=== PATIENT | female | born 1970 | race Caucasian/White ===

== ENCOUNTER 2019-05-11 08:59 | Day surgery (SDC) | payer OTHER ==
[~2019-05-11] VITALS: Ht 167.6 cm; Wt 78.4 kg
[2019-05-11 10:14] VITALS: Ht 167.6 cm; Wt 78.4 kg
[2019-05-11 10:21] VITALS: BP 108/65; PULSE 66; RESP 16
[2019-05-11] MEDS ORDERED: ELVI1TAB2 PO (10:23)
[2019-05-11] MEDS ORDERED: PROG50VI IM (10:23)
[2019-05-11] MEDS ORDERED: SPIR100T4 PO (10:23)
--- NOTE | 2019-05-11 10:58 | PREAC ---
Date/Time of Note Date/Time of Note DATE: 05/11/19 TIME: 10:56 Anesthesia Eval and Record Evaluation Time Pre-Procedure Interview DATE: 05/11/19 TIME: 10:56 Age 49 Sex female NPO: 8 hrs Preoperative diagnosis Screening Planned procedure Colonoscopy Past Medical History Past Medical History: Includes Infection(s): HIV : Other Surgery & Anesthesia Issues No known issue Meds Anticoagulation: No Beta Yenni within 24 hr: No Reason Beta Yenni not given: Pt. not on B-Yenni Reported Medications Spironolactone* (Spironolactone*) 100 Mg Tablet, 50 MG PO DAILY, TAB 05/11/19 Progesterone* (Progesterone*) 50 Mg/1 Ml Vial, 50 MG IM, VIAL 05/11/19 Elvitegr/Cobicist/Emtric/Tenof (STRIBILD TABLET) 1 Each Tablet, 1 EACH PO, TAB 05/11/19 Meds reviewed: Yes Allergies Coded Allergies: No Known Drug Allergies (Verified Allergy, Unknown, 05/11/19) Allergies Reviewed: Yes Labs/Studies Labs Reviewed: Reviewed by anesthesiologist test: N/A Studies: ECG (n/a), CXR (n/a) Pre-procedure Exam Last vitals Vital Signs Date Temp Pulse Resp B/P (MAP) Pulse Ox O2 O2 Flow FiO2 Time Delivery Rate 05/11/19 97.7 66 16 108/65 98 Room Air 10:21 (79) Airway: Adequate mouth opening, Adequate thyromental dist Mallampati: Mallampati II Teeth: Normal Lung: Normal Heart: Normal ASA Physical Status ASA physical status: 2 Emergency: None Planned Anesthetic General/MAC: MAC Planned Pain Management Parenteral pain med Pre-operative Attestations Prior to commencing anesthesia and surgery, the patient was re-evaluated, there was verification of: *The patient's identity *The results of appropriate recent lab work and preoperative vital signs *The above evaluation not changing prior to induction *Anesthetic plan, risk benefits, alternative and complications discussed with patient/family; questions answered; patient/family understands, accepts and wishes to proceed. CARLOS VILLALOBOS MD May 11, 2019 10:58
--- NOTE | 2019-05-11 11:28 | PAC ---
Date/Time of Note Date/Time of Note DATE: 05/11/19 TIME: 11:28 Post-Anesthesia Notes Post-Anesthesia Note Last documented vital signs Vital Signs Date Temp Pulse Resp B/P (MAP) Pulse Ox O2 O2 Flow FiO2 Time Delivery Rate 05/11/19 97.7 66 16 108/65 98 Room Air 11:31 (79) Activity: WNL Respiratory function: WNL Cardiovascular function: WNL Mental status: Baseline Pain reasonably controlled: Yes Hydration appropriate: Yes Nausea/Vomiting absent: Yes CARLOS VILLALOBOS MD May 11, 2019 11:28
[2019-05-11 12:06] VITALS: BP 113/63; PULSE 64; RESP 18
== END 2019-05-11 16:00 | disposition home or self-care (01) ==
LOC: GIL 08:59
PROVIDERS: ATTEND Internal Medicine Gastroenterology
DX: Z12.11 Encounter for screening for malignant neoplasm of colon (principal); K64.8 Other hemorrhoids
CPT/HCPCS: 45378; Z7610